=== PATIENT | male | born 1970 | race Caucasian/White ===

== ENCOUNTER 2016-12-18 11:25 | Emergency (ER) | payer OTHER ==
[~2016-12-18] VITALS: Ht 180.3 cm; Wt 98.9 kg
[~2016-12-18 11:25] MED LIST: PRED5PAK PO; SULF1TAB47 PO; Z.0.NO CURRENT MEDS
[2016-12-18 11:33] VITALS: BP 135/79; PULSE 76; RESP 16; O2SAT 98
--- NOTE | 2016-12-18 11:55 | PD ---
HPI Chief Complaint: Injury Time Seen by Provider: 11:52 Travel History International Travel<30 days: No Contact w/Intl Traveler<30days: No Traveled to known affect area: No History of Present Illness HPI 38-year-old male presents emergency department for evaluation of left foot pain. Patient reports while getting out of his truck he twisted the foot causing immediate pain to the dorsal aspect. He also reports he heard a snap. Patient has pain with weightbearing. He denies numbness/tingling/weakness of any extremity. Pain is constant, nonradiating, relieved with rest and elevation. Severity 4/10 PFSH Past Medical History Medical History: Denies Significant Hx Diminished Hearing: No GERD: Yes Hypertension: Yes (no meds) Inguinal Hernia: Yes (LEFT SIDE ?? AT AGE 1) Immunizations Current: No Tetanus Vaccination: Unknown Influenza Vaccination: No Past Surgical History Surgical History: No Previous Surgery Abdominal Surgery: Yes (HERNIA) Social History Alcohol Use: Yes (6-7 drinks daily) Tobacco Use: No (05/01 PPD) Substance Use: No Allergies-Medications (Allergen,Severity, Reaction): Coded Allergies: No Known Allergies (Verified , 12/18/16) Reported Meds & Prescriptions Reported Meds & Active Scripts Active No Active Prescriptions or Reported Medications Review of Systems Except as stated in HPI: all other systems reviewed are Neg Physical Exam Narrative GENERAL: Well-nourished, well-developed patient. SKIN: Focused skin assessment warm/dry. HEAD: Normocephalic. EYES: No scleral icterus. No injection or drainage. NECK: Supple, trachea midline. No JVD or lymphadenopathy. CARDIOVASCULAR: Regular rate and rhythm without murmurs, gallops, or rubs. RESPIRATORY: Breath sounds equal bilaterally. No accessory muscle use. MUSCULOSKELETAL: No cyanosis, or edema. Left foot: TTP/swelling/ecchymosis at the base of the fifth metatarsal. 2+ distal pulses. Brisk cap refill. Extremities neurovascularly intact. Data Data Last Documented VS Vital Signs Date Time Temp Pulse Resp B/P (MAP) Pulse Ox O2 Delivery O2 Flow Rate FiO2 12/18/16 11:44 (97) 12/18/16 11:33 76 16 98 Orders Orders Foot, Complete ([id number]) (12/18/16 ) Splint Or Brace Apply/Monitor (12/18/16 12:23) Crutches (12/18/16 12:24) MDM Medical Decision Making Medical Screen Exam Complete: Yes Emergency Medical Condition: Yes Differential Diagnosis Fifth metatarsal fracture, midfoot sprain, contusion Narrative Course 46-year-old male presents emergency department for evaluation of left foot pain status post twisting injury prior to arrival. On exam patient has pain, tenderness, swelling at the base of the fifth metatarsal. Extremities neurovascularly intact. X-ray pending X-ray the left foot reveal fifth metatarsal fracture. Patient put in a posterior short leg splint. Post-splint application recheck reveal good alignment and extremity is Norvasc intact. Patient agrees to follow up with orthopedic doctor. Return precautions discussed. Patient verbalized understanding and agrees to plan Diagnosis Primary Impression: Fracture of fifth metatarsal bone Qualified Codes: S92.355A - Nondisplaced fracture of fifth metatarsal bone, left foot, initial encounter for closed fracture Referrals: Ted Ryan MD, [place] DPM Orthopedist Additional Instructions: Keep the splint in place until follow-up with orthopedic. Ice and elevate the shoulder. Take [id number] Motrin 600-800 milligrams every 6-8 hours as needed for pain. Call and make an appointment for follow-up with orthopedic doctor. Scripts No Active Prescriptions or Reported Meds Disposition: 01 DISCHARGE HOME Condition: Stable Archana Cooper Dec 18, 2016 11:55
--- NOTE | 2016-12-18 12:26 | RADRPT ---
EXAM DATE/TIME: 12/18/2016 12:09 [facility] COMPARISON: No previous studies available for comparison. INDICATIONS : Left lateral foot pain post rolling it while getting out of truck. MEDICAL HISTORY : Hypertension. Gastroesophageal reflux disease. SURGICAL HISTORY : Hernia repair ENCOUNTER: Initial ACUITY: 1 day PAIN SCORE: 7/10 LOCATION: Left lateral foot. FINDINGS: There is a mildly displaced transverse fracture through the base of the fifth metatarsal. No other fr actures are seen. CONCLUSION: Base of fifth metatarsal fracture. John Cedeno MD on December 18, 2016 at 12:24 Board Certified Radiologist. This report was verified electronically.
== END 2016-12-18 13:22 | disposition home or self-care (01) ==
LOC: PHEFT 11:25
DX: S92.352A Displaced fracture of fifth metatarsal bone, left foot, initial encounter for closed fracture (principal); X50.9XXA Other and unspecified overexertion or strenuous movements or postures, initial encounter; I10 Essential (primary) hypertension
CPT/HCPCS: 29515; 73630